=== PATIENT | male | born 1995 | race Caucasian/White ===

== ENCOUNTER 2017-10-31 00:01 | Emergency (ER) | payer OTHER ==
[2017-10-31] MEDS ORDERED: LORazepam INJ* 2 MG/ML 1 ML VIAL IV PUSH ONE (00:37)
[2017-10-31] MEDS ORDERED: Ketorolac INJ* 30 MG/ML 1 ML VIAL IV PUSH ONE (00:37)
[2017-10-31 01:05] LABS: ABS Basophils 0 10^3/ul (0-0.2); ABS Eosinophils 0.1 10^3/ul (0-0.6); ABS Lymphocytes 1.2 10^3/ul (1.0-4.8); ABS Monocytes 1.2 10^3/ul (0-0.8); ABS Neutrophils 15.8 10^3/ul (1.5-7.7); ABS Nucleated RBC 0 10^3/ul; Eosinophil % 0.4 % (0-6); Hematocrit 43 % (42-52); Hemoglobin 14.4 g/dl (14.0-18.0); Lymphocyte % 6.4 % (25-47); Mean Corpuscular HGB Conc 34 g/dl (31-36); Mean Corpuscular Hemoglobin 29 pg (27-31); Mean Corpuscular Volume 87 fL (80-94); Mean Platelet Volume 7.9 um3 (7.4-10.4); Nucleated Red Blood Cells % 0; Platelet Count 232 10^3/ul (150-450); Red Cell Distribution Width 13 % (10.5-15); White Blood Count 18.3 10^3/ul (3.5-10.8)
[2017-10-31 01:18] LABS: Urine Appearance Clear; Urine Blood 3+ (Negative); Urine Color Straw; Urine Ketones 1+ (Negative); Urine Protein Negative (Negative); Urine Specific Gravity 1.003 (1.010-1.030); Urine Urobilinogen Negative (Negative)
[2017-10-31 01:20] LABS: EGFR Non-African American 67.8 (>60)
[2017-10-31] MEDS ORDERED: NS 0.9% 1000 ML* 1,000 ML IV ONE ×2 (02:00→02:01)
[2017-10-31 02:12] VITALS: BP 136/72
--- NOTE | 2017-10-31 02:34 | ED ---
Gurjit Sumner Nikita, scribed for Kodi Curtis MD on 10/31/17 at 0041 . Lower Extremity - HPI Summary HPI Summary: This patient is a 22 year old M presenting to ED with a chief complaint of R ankle pain s/p fall from unknown height and after taking acid at 1620. The patient has been on drugs for most of his teenage life. The patient reports that he wants to stop taking acid. The patient rates the pain 7/10 in severity. Symptoms aggravated by nothing. Symptoms alleviated by nothing. Patient reports feeling paranoid and L hip pain. Hx is limited due to intoxication. - History of Current Complaint Chief Complaint: EDExtremityLower Stated Complaint: ANKLE INJURY Time Seen by Provider: 10/31/17 00:04 Hx Obtained From: Patient - limited due to intoxication Mechanism Of Injury: Fall From Height Of: - unknown Severity Initially: Moderate Severity Currently: Moderate Pain Intensity: 7 Pain Scale Used: 0-10 Numeric Timing: Constant, Lasting Hours Location: Is Discrete @ - R ankle and L hip Associated Signs And Symptoms: Positive: Other - took acid at 1620, feeling paranoid Aggravating Factor(s): Nothing Alleviating Factor(s): Nothing - Allergies/Home Medications Allergies/Adverse Reactions: Allergies Allergy/AdvReac Type Severity Reaction Status Date / Time No Known Allergies Allergy Verified 02/14/15 08:25 PMH/Surg Hx/FS Hx/Imm Hx Endocrine/Hematology History: Denies: Hx Diabetes Cardiovascular History: Denies: Hx Coronary Artery Disease, Hx Pacemaker/ICD Respiratory History: Reports: Hx Asthma Sensory History: Denies: Hx Hearing Aid Psychiatric History: Reports: Hx of Violent Episodes Against Others Denies: Hx Panic Disorder - Surgical History Surgery Procedure, Year, and Place: Reports had to have one testicle dropped when he was a child Infectious Disease History: No Infectious Disease History: Denies: Traveled Outside the [place] in Last 30 Days - Family History Known Family History: Positive: Other Family History: Hx limited due to intoxication - Social History Alcohol Use: Occasionally Alcohol Amount: Smells of ETOH at present Substance Use Type: Reports: None Smoking Status (MU): Never Smoked Tobacco Review of Systems Positive: Other - took acid at 1620 Positive: Other - R ankle pain and L hip pain s/p fall from unknown height Psychological: Other - paranoia All Other Systems Reviewed And Are Negative: Yes Physical Exam - Summary Physical Exam Summary: Appearance: Well appearing, no pain distress, dissociated -- staring off and slow to respond. Skin: warm, dry, reflects adequate perfusion Head/face: no septal hematoma, dried blood on the bridge of the nose, contusion to upper lip, teeth are normal, nl occlusion Eyes: EOMI, no nystagmus, pupils sluggish ENT: as above with nasal injury, no facial instability Neck: supple, non-tender. Not transported in collar. Collar applied. Respiratory: CTA, breath sounds present Cardiovascular: RRR, pulses symmetrical Abdomen: non-tender, soft Bowel Sounds: present Musculoskeletal: swelling of medial aspect of L ankle and lateral aspect of R ankle. Pain with flexion L hip. Pelvis stable. Neuro: Alert and oriented x 2. Slow speech with reported paranoia. CN intact. PSYCH: appears dissociated and slowed/flat affect. Hx limited by intoxication Triage Information Reviewed: Yes Vital Signs On Initial Exam: Initial Vitals Temp Pulse Resp BP Pulse Ox 98.7 F 82 16 143/74 99 10/31/17 00:02 10/31/17 00:02 10/31/17 00:02 10/31/17 00:02 10/31/17 00:02 Vital Signs Reviewed: Yes Procedures - Procedure Summary Procedure Summary: Splint L ankle/foot: for fracture. Desc: A posterior splint of OCL was applied by me. NV intact. Tolerated well. - Splinting Location: R ankle and foot Hand-Made Type: orthoglass Splint: a posterior and a stirrup Pre-Proc Neuro Vasc Exam: normal Post-Proc Neuro Vasc Exam: normal Diagnostics - Vital Signs Vital Signs Temp Pulse Resp BP Pulse Ox 10/31/17 00:05 83 143/74 100 10/31/17 00:04 83 99 10/31/17 00:02 98.7 F 82 16 143/74 99 - Laboratory Lab Results: Lab Results 10/31/17 10/31/17 10/31/17 Range/Units 00:54 00:54 01:04 WBC 18.3 H (3.5-10.8) 10^3/ul RBC 4.90 (4.0-5.4) 10^6/ul Hgb 14.4 (14.0-18.0) g/dl Hct 43 (42-52) % MCV 87 (80-94) fL MCH 29 (27-31) pg MCHC 34 (31-36) g/dl RDW 13 (10.5-15) % Plt Count 232 (150-450) 10^3/ul MPV 7.9 (7.4-10.4) um3 Neut % (Auto) 86.6 H (38-83) % Lymph % (Auto) 6.4 L (25-47) % [place] % (Auto) 6.5 (0-7) % Eos % (Auto) 0.4 (0-6) % Baso % (Auto) 0.1 (0-2) % Absolute Neuts (auto) 15.8 H (1.5-7.7) 10^3/ul Absolute Lymphs (auto) 1.2 (1.0-4.8) 10^3/ul Absolute Monos (auto) 1.2 H (0-0.8) 10^3/ul Absolute Eos (auto) 0.1 (0-0.6) 10^3/ul Absolute Basos (auto) 0 (0-0.2) 10^3/ul Absolute Nucleated RBC 0 10^3/ul Nucleated RBC % 0 Sodium 137 L (139-145) mmol/L Potassium 3.3 L (3.5-5.0) mmol/L Chloride 101 (101-111) mmol/L Carbon Dioxide 23 (22-32) mmol/L Anion Gap 13 H (2-11) mmol/L BUN 13 (6-24) mg/dL Creatinine 1.31 H (0.67-1.17) mg/dL Est GFR ( Amer) 87.2 (>60) Est GFR (Non-Af Amer) 67.8 (>60) BUN/Creatinine Ratio 9.9 (8-20) Glucose 96 (70-100) mg/dL Calcium 9.8 (8.6-10.3) mg/dL Total Bilirubin 0.70 (0.2-1.0) mg/dL AST 46 H (13-39) U/L ALT 26 (7-52) U/L Alkaline Phosphatase 47 (34-104) U/L Total Creatine Kinase 603 H (10-223) U/L Total Protein 7.4 (6.4-8.9) g/dL Albumin 4.7 (3.2-5.2) g/dL Globulin 2.7 (2-4) g/dL Albumin/Globulin Ratio 1.7 (1-3) Urine Color Urine Appearance Urine pH (5-9) Ur Specific [place] (1.010-1.030) Urine Protein (Negative) Urine Ketones (Negative) Urine Blood (Negative) Urine Nitrate (Negative) Urine Bilirubin (Negative) Urine Urobilinogen (Negative) Ur Leukocyte Esterase (Negative) Urine WBC (Auto) (Absent) Urine RBC (Auto) (Absent) Urine Bacteria (Absent) Urine Glucose (Negative) Urine Opiates Screen None detected (None Detect) Ur Barbiturates Screen None detected (None Detect) Ur Phencyclidine Scrn None detected (None Detect) Ur Amphetamines Screen None detected (None Detect) U Benzodiazepines Scrn None detected (None Detect) Urine Cocaine Screen None detected (None Detect) U Cannabinoids Screen None detected (None Detect) 10/31/17 Range/Units 01:04 WBC (3.5-10.8) 10^3/ul RBC (4.0-5.4) 10^6/ul Hgb (14.0-18.0) g/dl Hct (42-52) % MCV (80-94) fL MCH (27-31) pg MCHC (31-36) g/dl RDW (10.5-15) % Plt Count (150-450) 10^3/ul MPV (7.4-10.4) um3 Neut % (Auto) (38-83) % Lymph % (Auto) (25-47) % [place] % (Auto) (0-7) % Eos % (Auto) (0-6) % Baso % (Auto) (0-2) % Absolute Neuts (auto) (1.5-7.7) 10^3/ul Absolute Lymphs (auto) (1.0-4.8) 10^3/ul Absolute Monos (auto) (0-0.8) 10^3/ul Absolute Eos (auto) (0-0.6) 10^3/ul Absolute Basos (auto) (0-0.2) 10^3/ul Absolute Nucleated RBC 10^3/ul Nucleated RBC % Sodium (139-145) mmol/L Potassium (3.5-5.0) mmol/L Chloride (101-111) mmol/L Carbon Dioxide (22-32) mmol/L Anion Gap (2-11) mmol/L BUN (6-24) mg/dL Creatinine (0.67-1.17) mg/dL Est GFR ( Amer) (>60) Est GFR (Non-Af Amer) (>60) BUN/Creatinine Ratio (8-20) Glucose (70-100) mg/dL Calcium (8.6-10.3) mg/dL Total Bilirubin (0.2-1.0) mg/dL AST (13-39) U/L ALT (7-52) U/L Alkaline Phosphatase (34-104) U/L Total Creatine Kinase (10-223) U/L Total Protein (6.4-8.9) g/dL Albumin (3.2-5.2) g/dL Globulin (2-4) g/dL Albumin/Globulin Ratio (1-3) Urine Color Straw Urine Appearance Clear Urine pH 6.0 (5-9) Ur Specific [place] 1.003 L (1.010-1.030) Urine Protein Negative (Negative) Urine Ketones 1+ A (Negative) Urine Blood 3+ A (Negative) Urine Nitrate Negative (Negative) Urine Bilirubin Negative (Negative) Urine Urobilinogen Negative (Negative) Ur Leukocyte Esterase Negative (Negative) Urine WBC (Auto) Trace(0-5/hpf) (Absent) Urine RBC (Auto) 1+(3-5/hpf) A (Absent) Urine Bacteria 1+ A (Absent) Urine Glucose Negative (Negative) Urine Opiates Screen (None Detect) Ur Barbiturates Screen (None Detect) Ur Phencyclidine Scrn (None Detect) Ur Amphetamines Screen (None Detect) U Benzodiazepines Scrn (None Detect) Urine Cocaine Screen (None Detect) U Cannabinoids Screen (None Detect) Result Diagrams: 10/31/17 00:54 10/31/17 00:54 Lab Statement: Any lab studies that have been ordered have been reviewed, and results considered in the medical decision making process. - Radiology L ankle XR Radiology Interpretation Completed By: ED Physician - medial malleolus avulsion fracture R ankle XR Radiology Interpretation Completed By: ED Physician - talus fracture R foot XR Radiology Interpretation Completed By: ED Physician - calcaneal fracture and talus fracture L foot XR Radiology Interpretation Completed By: ED Physician - medial malleolar avulsion fracture pelvic XR Radiology Interpretation Completed By: ED Physician - L-sided superior and inferior pubic rami fracture CXR Radiology Interpretation Completed By: ED Physician - No acute dz - CT Brain CT Interpretation Completed By: Radiologist - Pending official interpretation from radiologist. See [facility]. Re-Evaluation - Re-Evaluation First Eval Re-Evaluation Time: 02:10 Change: Unchanged Comment: The patient was put in a splint. Second Eval Change: Unchanged - Pt's friend available by phone. States he fell off a roof. Lower Extremity Course/Dx - Course Course Of Treatment: Pt presents with evidence of trauma with unknown mechanism after using LSD. Hx is extremely limited due to this. Pt wants to stand and walk despite significant deformity to both feet/ankle. He has no complaint -- but on exam its found he has tenderness in both feet/ankle and L hip with flexion. His abd is non-tender. Screening xray pelvis shows pelvic fxs. Both ankles are fx as well. CT of brain performed and appeared neg. When other injuries found full trauma scans ordered and transfer to trauma center arranged. Trauma scans will not be available prior to transfer but 4 view FAST scan is NEG. Urine is clear/yellow. His Cr is elevated at 1.31. Films placed on disk. Helicopter transport given his drug use/altered mental status, poly trauma. Will require full trauma eval on arrival. Helicopter team arrived quickly for transport. - Diagnoses Differential Diagnosis/HQI/PQRI: Positive: Other - LSD abuse, talus fracture, calcaneal fracture, medial malleolus avulsion fracture, L-sided superior and inferior pubic rami fracture Provider Diagnoses: Lysergic acid diethylamide (LSD) abuse, Talus fracture, Calcaneal fracture, Avulsion fracture of medial malleolus, Fracture of left inferior pubic ramus, Fracture of left superior pubic ramus, Delirium due to dissociative drug - Physician Notifications Discussed Care Of Patient With: Ty Andrea MD Time Discussed With Above Provider: 01:55 Instructed by Provider To: Other - Consulted Dr. Andrea at [facility] who accepts the patient for admission. - Critical Care Time Critical Care Time: 30-74 min - CCT is exclusive of separately billable procedures Discharge - Sign-Out/Discharge Documenting (check all that apply): Discharge - transfer to [facility] - Discharge Plan Condition: Guarded Disposition: TRANS HIGHER LVL OF CARE FAC Referrals: Non Staff,Doctor [Primary Care Provider] - - Billing Disposition and Condition Condition: GUARDED Disposition: EMTALA The documentation as recorded by the Gurjit cheney Nikita accurately reflects the service I personally performed and the decisions made by me, Kodi Curtis MD.
--- NOTE | 2017-10-31 08:05 | RAD ---
HISTORY: Right foot and ankle pain, injury COMPARISONS: None VIEWS: 5, Frontal, lateral, and oblique views of the right foot and ankle FINDINGS: BONE DENSITY: Normal. BONES: There is comminuted and displaced fracture of the calcaneus with extension to the subtalar joint JOINTS: There is no arthropathy. ALIGNMENT: There is no dislocation. SOFT TISSUES: Unremarkable. OTHER FINDINGS: None. IMPRESSION: COMMINUTED AND DISPLACED FRACTURE OF THE CALCANEUS WITH EXTENSION TO THE SUBTALAR JOINT.
--- NOTE | 2017-10-31 08:05 | RAD ---
Indication: LEFT ankle pain; illicit drug use. Possible injury. Comparison: No relevant prior exams available on the [facility] PACS for comparison. Technique: AP, mortise, and lateral views LEFT ankle. REPORT AND IMPRESSION: Avulsion fracture at the medial malleolus, possibly comminuted, with up to 0.8 cm anterior and inferior displacement. The ankle mortise remains congruent. Soft tissue swelling most prominent over the medial malleolus.
--- NOTE | 2017-10-31 08:06 | RAD ---
HISTORY: Trauma, ankle injury. No other history is provided. COMPARISONS: None VIEWS: 1: frontal portable view of the chest at 2:25 AM FINDINGS: LINES AND TUBES: None. CARDIOMEDIASTINAL SILHOUETTE: The cardiomediastinal silhouette is normal for portable technique. PLEURA: The costophrenic angles are sharp. No pleural abnormalities are noted. LUNG PARENCHYMA: The lungs are clear. ABDOMEN: The upper abdomen is clear. There is no subphrenic gas. BONES AND SOFT TISSUES: No bone or soft tissue abnormalities are noted. IMPRESSION: NO ACTIVE CARDIOPULMONARY DISEASE.
--- NOTE | 2017-10-31 08:07 | RAD ---
Indication: LEFT foot pain following injury. Comparison: LEFT ankle of the same date. Technique: AP and lateral views LEFT foot REPORT AND IMPRESSION: Avulsion fracture at the medial malleolus. No additional fracture evident. Normal articular alignment. Soft tissue swelling about the ankle and hindfoot.
--- NOTE | 2017-10-31 08:07 | RAD ---
INDICATION: Left hip pain TECHNIQUE: An AP view of the pelvis was obtained. FINDINGS: There is a minimally displaced fracture involving the lateral superior pubic ramus with discontinuity at the ischial pectineal line. The remaining visualized bones are otherwise intact and appropriately aligned. IMPRESSION: Minimally displaced fracture at the lateral superior pubic ramus.
--- NOTE | 2017-10-31 08:08 | RAD ---
HISTORY: Head injury, intoxication COMPARISONS: April 05, 2013 TECHNIQUE: Multiple contiguous axial CT scans were obtained of the head without intravenous contrast. FINDINGS: HEMORRHAGE/INFARCT: There is no hemorrhage or acute infarct. MASSES/SHIFT: There is no mass or shift. EXTRA-AXIAL SPACES: There are no extra-axial fluid collections. SULCI AND VENTRICLES: The sulci and ventricles are normal in size and position for the patient's stated age. Incidentally noted is a cavum septum pellucidum et vergae. CEREBRUM: There are no focal parenchymal abnormalities. BRAINSTEM: There are no focal parenchymal abnormalities. CEREBELLUM: There are no focal parenchymal abnormalities. VESSELS: The vessels are grossly normal. PARANASAL SINUSES: The paranasal sinuses are clear. ORBITS: The orbits are unremarkable. BONES AND SOFT TISSUE: No bone or soft tissue abnormalities are noted. OTHER: None IMPRESSION: NO ACUTE INTRACRANIAL PATHOLOGY.
== END 2017-10-31 02:40 | disposition short-term general hospital (02) ==
LOC: ED 00:01
DX: F16.121 Hallucinogen abuse with intoxication with delirium (principal); S92.102A Unspecified fracture of left talus, initial encounter for closed fracture; S82.52XA Displaced fracture of medial malleolus of left tibia, initial encounter for closed fracture; S32.592A Other specified fracture of left pubis, initial encounter for closed fracture; W17.89XA Other fall from one level to another, initial encounter; Y92.9 Unspecified place or not applicable
CPT/HCPCS: 29515; 36415; 70450; 71045; 72170; 80053; 80307; 81003; 81015; 82550; 85025; 87086; 96360; 96374; 96375; 99285; J1885; J2060